=== PATIENT | male | born 1970 | race Caucasian/White ===

== ENCOUNTER 2019-05-17 10:25 | Emergency (ER) | payer MEDICAID ==
[~2019-05-17] VITALS: Ht 165.1 cm; Wt 70.3 kg
[~2019-05-17 10:25] MED LIST: NAPR-985 PO
[2019-05-17 10:31] VITALS: BP 166/79; PULSE 77; RESP 18; Ht 165.1 cm; Wt 70.3 kg
[2019-05-17] MEDS ORDERED: IBUPROFEN 800 MG TAB PO ONE (11:30)
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
== END 2019-05-17 12:33 | disposition home or self-care (01) ==
LOC: FTE 10:25
DX: M79.642 Pain in left hand (principal); F17.210 Nicotine dependence, cigarettes, uncomplicated
CPT/HCPCS: 73110; 73130; Z7502; Z7610